=== PATIENT | male | born 1975 | race Caucasian/White ===

== ENCOUNTER 2017-08-10 19:32 | Emergency (ER) | payer BC ==
[2017-08-10] MEDS ORDERED: IBUPROFEN 800 MG TABLET PO ONE (22:41)
[2017-08-10] MEDS ORDERED: METHYLPREDNISOLONE INJ 40 MG/1 ML SDV IM ONE (22:41)
[2017-08-10] MEDS ORDERED: AMOXICILLIN TR/POT CLAVULANATE 500-125 MG TAB PO ONE (22:41)
--- NOTE | 2017-08-10 22:43 | ER Document Report ---
ED ENT - General Chief Complaint: Congestion Stated Complaint: CONGESTION Time Seen by Provider: 08/10/17 22:33 TRAVEL OUTSIDE OF THE [place] IN LAST 30 DAYS: No - HPI Patient complains to provider of: Nose problem - Sinus congestion frontal and maxillary Onset: Other - Chronic sinusitis but worse this morning. Onset/Duration: Sudden Quality of pain: Achy Severity: Moderate Context: Allergies - Chronic sinusitis that got worse this morning Location of pain: Sinus Associated symptoms: Other - Admits to drainage and pressure which is worse than normal Similar symptoms previously: No Recently seen / treated by doctor: No - Typically goes to his primary care provider receives a s a "shot" every fal Past Medical History - Social History Smoking Status: Never Smoker Chew tobacco use (# tins/day): No Frequency of alcohol use: None Drug Abuse: None Family History: Reviewed & Not Pertinent Patient has suicidal ideation: No Patient has homicidal ideation: No Renal/ Medical History: Denies: Hx Peritoneal Dialysis Musculoskeltal Medical History: Reports Hx Arthritis Surgical Hx: Negative - Immunizations Hx Diphtheria, Pertussis, Tetanus Vaccination: Yes Review of Systems - Review of Systems Constitutional: No symptoms reported EENT: See HPI Cardiovascular: No symptoms reported Respiratory: No symptoms reported -: Yes All other systems reviewed and negative Physical Exam - Vital signs Vitals: Temp Pulse Resp BP Pulse Ox 100.0 F 104 H 20 138/81 H 98 08/10/17 19:59 08/10/17 19:59 08/10/17 19:59 08/10/17 19:59 08/10/17 19:59 - HEENT Head: Normocephalic, Atraumatic Eyes: Normal. No: Pale conjunctiva, Periorbital ecchymosis, Periorbital edema, Scleral icterus, Tears, Other Conjunctiva: Normal. No: Icteric, Injected, Purulent discharge, Other Extraocular movements intact: Yes Eyelashes: Normal Pupils: PERRL Ears: Normal. No: Ecchymosis, Pinna laceration, Pinna tenderness, Tragus laceration, Tragus tenderness, Other External canal: Normal. No: Blood in canal, Cerumen impaction, Erythema, Foreign body, Swollen, Other Tympanic membrane: Normal. No: Bulging, Hemotympanum, Injected, Loss of landmarks, Perforation, Purulent effusion, Retracted, Serous effusion, Other Sinus: Frontal, Maxillary, Tenderness. No: Redness, Swelling Nasal: Normal. No: Bloody discharge, Gonzalez deformity, Ecchymosis, Epistaxis, Purulent discharge, Septal hematoma, Swelling, Clear rhinorrhea, Other Mouth/Lips: Normal. No: Angioedema, Caries, Dental fracture, Laceration, Lesions, Other Mucous membranes: Normal. No: Dry, Moist, Other Pharynx: Normal. No: Blood in hypopharynx, Erythema, Exudate, Peritonsillar abscess, Post nasal drainage, Retropharyngeal abscess, Tonsillar hypertrophy, Uvular edema, Potential airway comprom., Other Neck: Normal. No: Anterior cervical chain, Posterior cervical chain, Brudzinski , Carotid bruit, Kernig's, Lymphadenopathy, Meningismus, Neck mass, Shotty nodes , Subcutaneous emphysema, Supple, Thyroid nodule, Thyromegally, Other - Respiratory Respiratory status: No respiratory distress Chest status: Nontender Breath sounds: Normal Chest palpation: Normal - Cardiovascular Rhythm: Regular Heart sounds: Normal auscultation, S1 appreciated, S2 appreciated Gallop: None auscultated - Skin Skin Temperature: Warm Skin Moisture: Dry Skin Color: Normal Skin Turgor: Elastic Course - Re-evaluation Re-evalutation: 08/10/17 22:42 Patient is a 41-year-old male is hemodynamic stable, no acute distress afebrile. No evidence of acute sinusitis noted at this time given patient's chronic sinusitis will discharge home on Augmentin and to follow-up with his primary care when he returns home tomorrow. Patient agrees with plan. Stable for discharge - Vital Signs Vital signs: Temp Pulse Resp BP Pulse Ox 100.0 F 104 H 20 138/81 H 98 08/10/17 19:59 08/10/17 19:59 08/10/17 19:59 08/10/17 19:59 08/10/17 19:59 Discharge - Discharge Clinical Impression: Sinusitis Qualifiers: Sinusitis location: frontal Chronicity: unspecified Qualified Code(s): J32.1 - Chronic frontal sinusitis Condition: Good Disposition: HOME, SELF-CARE Instructions: Sinusitis ([facility]) Additional Instructions: Please follow-up with your primary care provider regarding today's visit. Prescriptions: Amox Tr/Potassium Clavulanate [Augmentin 875-125 Tablet] 1 tab PO BID 5 Days tablet
[2017-08-11 07:24] VITALS: BP 143/101
== END 2017-08-10 23:00 | disposition home or self-care (01) ==
LOC: ER 19:32
DX: J32.1 Chronic frontal sinusitis (principal); R09.81 Nasal congestion
CPT/HCPCS: 99283; 96372; J2920